=== PATIENT | female | born 1995 | race African-American/Black ===

== ENCOUNTER 2022-05-30 14:46 | Emergency (ER) | payer OTHER, SELFPAY ==
[2022-05-30] VITALS (10 sets, daily range): BP systolic 117–158; BP diastolic 64–97; PULSE 91–111; RESP 13–18; TEMP 36.8–36.9; O2SAT 98–100; BMI 27.4
--- NOTE | 2022-05-30 14:40 | ECG_ITS ---
APPROVED REPORT Exam: Resting ECG HR:110 bpm ECG Measurements Heart Rate 110 AXES UT 192 P 76 QRSd 91 QRS 51 QT 310 T 70 QTc 375 Conclusion SINUS TACHYCARDIA NONSPECIFIC T-WAVE ABNORMALITY ABNORMAL RHYTHM ECG UNCONFIRMED REPORT Electronically signed by : Zechariah Cardoso MD 06/02/2022 07:17:31
--- NOTE | 2022-05-30 14:48 | XR_ITS ---
FINAL REPORT TECHNIQUE: Single view chest CLINICAL HISTORY: chest pain since today FINDINGS: A single view of the chest was obtained. The heart and mediastinum are within normal limits. The lungs are clear. There is no pneumothorax. Osseous structures are unremarkable. IMPRESSION: No acute cardiopulmonary process. Reviewed, Interpreted and Dictated by Merlin Ely III, MD Transcribed by Clara Bryant Authenticated and [facility] [place]
--- NOTE | 2022-05-30 14:50 | HMH.EDGENADL ---
Discharge Plan Disposition Patient Disposition: Still a Patient Prescriptions Prescriptions: No Action No Known Home Medications Clinical Impressions Clinical Impression: Chest pain, Acute hypokalemia Discharge ED Provider: Jae Mathur General Adult HPI General Chief complaint: PAIN Stated complaint: chest tightness Time Seen by Provider: 05/30/22 14:50 History of Present Illness HPI narrative: Patient is a 26-year-old female with no pertinent past medical history who presents to the emergency department for evaluation of chest pain, intermittent leg swelling patient states that leg swelling has been acute, over the last 24 hours, mostly resolved prior to arrival. There is associated moderate to severe substernal chest pain and shortness of breath. Patient states she thinks she has had a previous blood clot before however has not been formally seen by doctor for this or formally diagnosed with a blood clot. Denies abdominal pain. No other acute complaints at this time. Related Data Home Medications Medication Instructions Recorded Confirmed No Known Home Medications 05/30/22 05/30/22 Allergies Allergy/AdvReac Type Severity Reaction Status Date / Time shrimp Allergy Intermediate Verified 05/30/22 14:52 [facility] Disclaimer: The information contained in this section may have been updated after the patient was seen, as this information can be updated by other users. Social History Smoking Status: Never smoker alcohol intake: never current occupational status: other Travel in the last 8 weeks: None ROS Obtained: Yes Systems reviewed as appropriate & no additional complaints except as documented Physical Exam General General appearance: alert and in no apparent distress Head Head exam: atraumatic and normocephalic Eye Eye exam: Present PERRL and EOMI ENT ENT exam: Present mucous membranes moist Neck Neck exam: Present normal inspection Chest Chest inspection: Present normal inspection and symmetric chest wall rise Respiratory Respiratory exam: Present normal lung sounds bilaterally; Absent respiratory distress Cardiovascular Cardiovascular exam: Present normal rhythm and tachycardia Abdominal Exam Abdominal exam: Present soft; Absent tenderness Extremities Exam Extremities exam: Present normal inspection and other (No obvious swelling left lower extremity, palpable dorsal pedal pulse) Neurological Exam Neurological exam: Present alert and oriented X3 Psychiatric Psychiatric exam: Present normal affect Skin Skin exam: Present warm and dry Medical Decision Making Vivek Inquiry Pt receiving controlled substance: No Vital Signs: 05/30/22 14:47 05/30/22 15:00 05/30/22 15:30 Temperature 98.4 F Temperature Source Oral Pulse Rate 111 H 108 H Pulse Rate [Right] 100 H Respiratory Rate 16 Blood Pressure 151/92 H 129/64 Blood Pressure [Right Arm] 158/84 H Blood Pressure Mean 104 96 Blood Pressure Mean [Right Arm] 108 Blood Pressure Source [Right Arm] Automatic Cuff Blood Pressure Position [Right Arm] Sitting 02 Sat by Pulse Oximetry 98 100 98 Oxygen Delivery Method Room Air 05/30/22 16:00 05/30/22 16:30 05/30/22 17:00 Temperature Temperature Source Pulse Rate 99 H 98 H 101 H Pulse Rate [Right] Respiratory Rate 18 18 18 Blood Pressure 137/82 141/93 H 117/90 Blood Pressure [Right Arm] Blood Pressure Mean 91 102 95 Blood Pressure Mean [Right Arm] Blood Pressure Source [Right Arm] Blood Pressure Position [Right Arm] 02 Sat by Pulse Oximetry 98 99 100 Oxygen Delivery Method 05/30/22 17:30 Temperature Temperature Source Pulse Rate 101 H Pulse Rate [Right] Respiratory Rate 18 Blood Pressure 135/94 H Blood Pressure [Right Arm] Blood Pressure Mean 105 Blood Pressure Mean [Right Arm] Blood Pressure Source [Right Arm] Blood Pressure Position [Right Arm] 02 Sat by Pulse Oximetry 100 Oxygen Delive
--- NOTE | 2022-05-30 14:54 | CA_ITS ---
FINAL REPORT TECHNIQUE: Color Doppler, duplex Doppler and compression sonography of the right lower extremity venous system was performed. CLINICAL HISTORY: PAIN IN right extremity. HTN. Denies trauma. Right leg began hurting while walking yesterday with edema noted. Patient states she had a previous DVT but was never diagnosed with one. 81 mg ASA daily. FINDINGS: There is no evidence of deep venous thrombosis from the level of the groin to the calf. The veins are patent and compressible. IMPRESSION: No evidence of deep venous thrombosis right lower extremity. Reviewed, Interpreted and Dictated by Merlin Ely III, MD Transcribed by Una Mccormick Authenticated and [facility]
--- NOTE | 2022-05-30 14:55 | PC.NURSE ---
ECHO LAB NOTIFIED OF DOPPLER
[2022-05-30 15:03] LABS: Basophils # 0.1 K/mm3 (0-0.2); Basophils % 0.7 % (0.1-2.0); Eosinophils # 1.2 K/mm3 (0.0-0.4); Eosinophils % 12.1 % (0.1-12.0); Hemoglobin 10.8 g/dL (12.2-16.2); Lymphocytes # 2.1 K/mm3 (0.7-4.5); Lymphocytes % 21.8 % (10-50); Mean Corpuscular HGB Conc 32.8 g/dL (31.8-35.4); Mean Corpuscular Hemoglobin 28.8 pg (27.0-31.2); Mean Corpuscular Volume 87.9 fl (81-99); Mean Platelet Volume 7.8 fl (7.4-10.4); Monocytes # 0.4 K/mm3 (0.1-1.0); Monocytes % 4.3 % (1.7-9.3); Neutrophils % 61.2 % (37.0-80.0); Platelet Count 466 K/mm3 (142-424); Red Blood Count 3.76 M/mm3 (4.20-5.40); Red Cell Distribution Width 12.7 % (11.5-17.5); White Blood Count 9.8 K/mm3 (4.8-10.8)
[2022-05-30 15:06] LABS: Blood Urea Nitrogen 13 mg/dl (7-17); Calcium 9.5 mg/dl (8.4-10.2); Carbon Dioxide 23 mmol/L (22.0-30.0); Chloride 107 mmol/L (98-107); Creatinine Clearance Estimated 141 mL/min (50-200); Estimated Glomerular Filt Rate 102 ml/min (>60); GFR (African American) 123 ML/MIN (>60); Glucose 95 mg/dl (74-100); Sodium 140 mmol/L (136-145)
[2022-05-30 15:12] LABS: D-Dimer 0.56 ug/mL (0.0-0.5)
[2022-05-30 15:13] LABS: HCG Qualitative, Serum Negative (Negative)
[2022-05-30 15:22] LABS: Troponin I < 0.01 ng/ml (0.00-0.034)
--- NOTE | 2022-05-30 15:34 | PC.NURSE ---
vascular here for doppler study
[2022-05-30 17:21] LABS: Coronavirus 19, PCR Not Detected (NotDetected); Influenza A, PCR Not Detected (NotDetected); Influenza B, PCR Not Detected (NotDetected)
--- NOTE | 2022-05-30 18:26 | PC.NURSE ---
LAB HERE FOR REPEAT TROP
--- NOTE | 2022-05-30 19:08 | CT_ITS ---
PROCEDURE INFORMATION: Exam: CTA Chest With Contrast Exam date and time: 05/30/2022 7:30 PM Age: 26 years old Clinical indication: Pain; Chest pressure; Additional info: Cp, tachycardia, elevated dimer TECHNIQUE: Imaging protocol: Computed tomographic angiography of the chest with contrast. 3D rendering (Not supervised by radiologist): MIP and/or 3D reconstructed images were created by the technologist. Radiation optimization: All CT scans at this facility use at least one of these dose optimization techniques: automated exposure control; mA and/or kV adjustment per patient size (includes targeted exams where dose is matched to clinical indication); or iterative reconstruction. Contrast material: ISOVUE 370; Contrast volume: 70 ml; Contrast route: INTRAVENOUS (IV); COMPARISON: CR XR CHEST PORTABLE 05/30/2022 3:41 PM FINDINGS: Pulmonary arteries: Normal. No pulmonary emboli. Aorta: Unremarkable. No aortic aneurysm. No aortic dissection. Lungs: Unremarkable. No consolidation. No masses. Pleural spaces: Unremarkable. No pneumothorax. No pleural effusion. Heart: Unremarkable. No cardiomegaly. No pericardial effusion. Lymph nodes: Unremarkable. No enlarged lymph nodes. Bones/joints: Unremarkable. No acute fracture. Soft tissues: Unremarkable. IMPRESSION: No acute findings.
--- NOTE | 2022-05-30 19:09 | PC.NURSE ---
Dr. Mathur at [facility] speaking with pt
[2022-05-30 19:43] LABS: Troponin I < 0.01 ng/ml (0.00-0.034)
--- NOTE | 2022-05-30 20:31 | HMH.EDGENADL ---
Discharge Plan Disposition Patient Disposition: Still a Patient Prescriptions Prescriptions: No Action No Known Home Medications Clinical Impressions Clinical Impression: Chest pain, Acute hypokalemia Discharge ED Provider: Jae Mathur General Adult HPI General Chief complaint: PAIN Stated complaint: chest tightness Time Seen by Provider: 05/30/22 14:50 Mode of Arrival: EMS Source of Information: Patient Limitations: No Limitations Description of Symptoms (Recalled from ER Triage Doc. by RN): pt advises she had right leg swelling last night and she thinks she had blood clot that moved. Advises she thinks she had one once before and she has some chest tightness. Advises she uses her own techniquesto help try and relieve the pain but it hasnt helped. History of Present Illness HPI narrative: Patient is a previously healthy 26-year-old female with past medical history of depression who presents to the emergency department for evaluation of chest pain and shortness of breath. Onset was acute, occurring over the last 24 hours. Patient states she had transient swelling in her left lower extremity Related Data Home Medications Medication Instructions Recorded Confirmed No Known Home Medications 05/30/22 05/30/22 Allergies Allergy/AdvReac Type Severity Reaction Status Date / Time shrimp Allergy Intermediate Verified 05/30/22 14:52 [facility] Disclaimer: The information contained in this section may have been updated after the patient was seen, as this information can be updated by other users. Social History (Updated 05/30/22 @ 19:56 by Jae Mathur MD) Smoking Status: Never smoker alcohol intake: never current occupational status: other Travel in the last 8 weeks: None Physical Exam General General appearance: alert and in no apparent distress Medical Decision Making Vivek Inquiry Pt receiving controlled substance: No Vital Signs: 05/30/22 14:47 05/30/22 15:00 05/30/22 15:30 Temperature 98.4 F Temperature Source Oral Pulse Rate 111 H 108 H Pulse Rate [Right] 100 H Respiratory Rate 16 Blood Pressure 151/92 H 129/64 Blood Pressure [Right Arm] 158/84 H Blood Pressure Mean 104 96 Blood Pressure Mean [Right Arm] 108 Blood Pressure Source [Right Arm] Automatic Cuff Blood Pressure Position [Right Arm] Sitting 02 Sat by Pulse Oximetry 98 100 98 Oxygen Delivery Method Room Air 05/30/22 16:00 05/30/22 16:30 05/30/22 17:00 Temperature Temperature Source Pulse Rate 99 H 98 H 101 H Pulse Rate [Right] Respiratory Rate 18 18 18 Blood Pressure 137/82 141/93 H 117/90 Blood Pressure [Right Arm] Blood Pressure Mean 91 102 95 Blood Pressure Mean [Right Arm] Blood Pressure Source [Right Arm] Blood Pressure Position [Right Arm] 02 Sat by Pulse Oximetry 98 99 100 Oxygen Delivery Method 05/30/22 17:30 Temperature Temperature Source Pulse Rate 101 H Pulse Rate [Right] Respiratory Rate 18 Blood Pressure 135/94 H Blood Pressure [Right Arm] Blood Pressure Mean 105 Blood Pressure Mean [Right Arm] Blood Pressure Source [Right Arm] Blood Pressure Position [Right Arm] 02 Sat by Pulse Oximetry 100 Oxygen Delivery Method Lab Data Lab Results 05/30/22 14:48: WBC 9.8, RBC 3.76 L, Hgb 10.8 L, Hct 33.0 L, MCV 87.9, MCH 28.8, MCHC 32.8, RDW 12.7, Plt Count 466 H, MPV 7.8, Neut % (Auto) 61.2, Lymph % (Auto) 21.8, [place] % (Auto) 4.3, Eos % (Auto) 12.1 H, Baso % (Auto) 0.7, Neut # (Auto) 6.0, Lymph # (Auto) 2.1, [place] # (Auto) 0.4, Eos # (Auto) 1.2 H, Baso # (Auto) 0.1 05/30/22 14:48: D-Dimer 0.56 H 05/30/22 14:48: Sodium 140, Potassium 3.0 L, Chloride 107, Carbon Dioxide 23, Anion Gap 13.0, BUN 13, Creatinine 0.70, Estimated Creat Clear 141, Estimated GFR 102, Est GFR ( Amer) 123, Glucose 95, Calcium 9.5, Troponin I < 0.01 05/30/22 14:48: Serum HCG, Qual Negative 05/30/22 17:15: SARS-CoV-2 (PCR) Not detected, Inf
--- NOTE | 2022-05-30 22:09 | HMH.EDGENADL ---
Discharge Plan Disposition Patient Disposition: Still a Patient Prescriptions Prescriptions: No Action nifedipine 60 mg tablet extended release 24hr 60 mg PO BID Label Comments: TAKE 1 TABLET BY MOUTH TWICE DAILY labetalol 300 mg tablet 300 mg PO TID Label Comments: TAKE 1 TABLET BY MOUTH THREE TIMES DAILY Clinical Impressions Clinical Impression: Chest pain, Acute hypokalemia Discharge ED Provider: Roddy Andrew General Adult HPI General Chief complaint: PAIN Stated complaint: chest tightness Time Seen by Provider: 05/30/22 14:50 Mode of Arrival: EMS Source of Information: Patient Limitations: No Limitations Description of Symptoms (Recalled from ER Triage Doc. by RN): pt advises she had right leg swelling last night and she thinks she had blood clot that moved. Advises she thinks she had one once before and she has some chest tightness. Advises she uses her own techniquesto help try and relieve the pain but it hasnt helped. Related Data Home Medications Medication Instructions Recorded Confirmed labetalol 300 mg tablet 300 mg PO TID htn 05/30/22 05/30/22 nifedipine 60 mg tablet,extended 60 mg PO BID htn 05/30/22 05/30/22 release 24 hr Allergies Allergy/AdvReac Type Severity Reaction Status Date / Time shrimp Allergy Intermediate Verified 05/30/22 14:52 [facility] Disclaimer: The information contained in this section may have been updated after the patient was seen, as this information can be updated by other users. Social History (Updated 05/30/22 @ 19:56 by Jae Mathur MD) Smoking Status: Never smoker alcohol intake: never current occupational status: other Travel in the last 8 weeks: None Physical Exam General General appearance: alert and in no apparent distress Medical Decision Making Vital Signs: 05/30/22 14:47 05/30/22 15:00 05/30/22 15:30 Temperature 98.4 F Temperature Source Oral Pulse Rate 111 H 108 H Pulse Rate [Right] 100 H Respiratory Rate 16 Blood Pressure 151/92 H 129/64 Blood Pressure [Right Arm] 158/84 H Blood Pressure Mean 104 96 Blood Pressure Mean [Right Arm] 108 Blood Pressure Source [Right Arm] Automatic Cuff Blood Pressure Position [Right Arm] Sitting 02 Sat by Pulse Oximetry 98 100 98 Oxygen Delivery Method Room Air 05/30/22 16:00 05/30/22 16:30 05/30/22 17:00 Temperature Temperature Source Pulse Rate 99 H 98 H 101 H Pulse Rate [Right] Respiratory Rate 18 18 18 Blood Pressure 137/82 141/93 H 117/90 Blood Pressure [Right Arm] Blood Pressure Mean 91 102 95 Blood Pressure Mean [Right Arm] Blood Pressure Source [Right Arm] Blood Pressure Position [Right Arm] 02 Sat by Pulse Oximetry 98 99 100 Oxygen Delivery Method 05/30/22 17:30 05/30/22 20:00 05/30/22 20:30 Temperature Temperature Source Pulse Rate 101 H 98 H 105 H Pulse Rate [Right] Respiratory Rate 18 13 Blood Pressure 135/94 H 128/85 146/97 H Blood Pressure [Right Arm] Blood Pressure Mean 105 Blood Pressure Mean [Right Arm] Blood Pressure Source [Right Arm] Blood Pressure Position [Right Arm] 02 Sat by Pulse Oximetry 100 100 100 Oxygen Delivery Method Room Air Room Air Lab Data Lab Results 05/30/22 14:48: WBC 9.8, RBC 3.76 L, Hgb 10.8 L, Hct 33.0 L, MCV 87.9, MCH 28.8, MCHC 32.8, RDW 12.7, Plt Count 466 H, MPV 7.8, Neut % (Auto) 61.2, Lymph % (Auto) 21.8, [place] % (Auto) 4.3, Eos % (Auto) 12.1 H, Baso % (Auto) 0.7, Neut # (Auto) 6.0, Lymph # (Auto) 2.1, [place] # (Auto) 0.4, Eos # (Auto) 1.2 H, Baso # (Auto) 0.1 05/30/22 14:48: D-Dimer 0.56 H 05/30/22 14:48: Sodium 140, Potassium 3.0 L, Chloride 107, Carbon Dioxide 23, Anion Gap 13.0, BUN 13, Creatinine 0.70, Estimated Creat Clear 141, Estimated GFR 102, Est GFR ( Amer) 123, Glucose 95, Calcium 9.5, Troponin I < 0.01 05/30/22 14:48: Serum HCG, Qual Negative 05/30/22 17:15: SARS-CoV-2 (PCR) Not detected, Influenza
== END 2022-05-30 22:29 | disposition home or self-care (01) ==
PROVIDERS: Emergency Medicine; Emergency Provider Emergency Medicine
DX: R07.2 Precordial pain (principal); R06.02 Shortness of breath; R00.0 Tachycardia, unspecified; E87.6 Hypokalemia; I26.99 Other pulmonary embolism without acute cor pulmonale; M79.89 Other specified soft tissue disorders; R79.1 Abnormal coagulation profile; Z20.822 Contact with and (suspected) exposure to COVID-19; Z79.899 Other long term (current) drug therapy; Z91.013 Allergy to seafood
CPT/HCPCS: 36415; 71045; 71275; 80048; 84484; 84703; 85025; 85378; 93005; 93971; 96361; 96374; 96375; 99285; C9803; Q9967; U0003; U0005